=== PATIENT | male | born 1950 | race Caucasian/White ===

== ENCOUNTER 2018-04-21 11:15 | Emergency (ER) | payer OTHER ==
[~2018-04-21] VITALS: Ht 167.6 cm; Wt 83.5 kg
[2018-04-21] MEDS ORDERED: TOPROL XL100 M1 (11:51)
[2018-04-21] MEDS ORDERED: AVAPRO300 MG (11:51)
[2018-04-21] MEDS ORDERED: JANUMET 50-1,01 EACH (11:51)
[2018-04-21] MEDS ORDERED: LIPITOR20 MG (11:52)
[2018-04-21] MEDS ORDERED: ASPIR-TRIN325 MG (11:52)
[2018-04-21] MEDS ORDERED: VISTARIL50 MG (11:52)
[2018-04-21] MEDS ORDERED: GLIMEPIRIDE4 MG (11:52)
[2018-04-21] MEDS ORDERED: SYNTHROID100 MCG (11:53)
== END 2018-04-21 14:23 | disposition home or self-care (01) ==
LOC: ER 11:15
DX: L03.115 Cellulitis of right lower limb (principal)